=== PATIENT | female | born 1985 | race Caucasian/White ===

== ENCOUNTER → 2022-10-15 10:00 | Outpatient (BNVA) | payer SELFPAY | PROVIDERS: Family Provider Family Medicine; PCP Family Medicine; Visit Provider Nurse Practitioner Women's Health | DX: O09.529 Supervision of elderly multigravida, unspecified trimester (principal); O09.40 Supervision of pregnancy with grand multiparity, unspecified trimester; O12.00 Gestational edema, unspecified trimester; Z3A.00 Weeks of gestation of pregnancy not specified | CPT/HCPCS: 81000 ==

== ENCOUNTER 2022-10-21 16:48 | Outpatient (CLI) | payer MEDICAID, SELFPAY ==
[2022-10-21 16:50] VITALS: BMI 32.4
[2022-10-21 16:52] VITALS: BP 121/68; PULSE 84
[2022-10-21 17:07] VITALS: BP 118/62; PULSE 101
--- NOTE | 2022-10-21 17:09 | USR_ITS ---
PROCEDURE INFORMATION: Exam: US Duplex Left Lower Extremity Veins, Limited Exam date and time: 10/21/2022 5:22 PM Age: 37 years old Clinical indication: Pain; Leg, lower; Left; Additional info: Rule out dvt TECHNIQUE: Imaging protocol: Real-time duplex ultrasound of the left extremity with 2-D mendenhall scale, color Doppler flow and spectral waveform analysis including responses to compression and other maneuvers (when performed) with image documentation. Limited exam focused on the left lower extremity veins. COMPARISON: US OB follow up [facility] 10/15/2022 10:42 AM FINDINGS: Left deep veins: Unremarkable. The common femoral, femoral, proximal profunda femoral and popliteal veins are patent without thrombus. Normal Doppler waveforms. Normal compressibility and/or augmentation response. Left superficial veins: Unremarkable. Saphenofemoral junction is patent without thrombus. Soft tissues: Unremarkable. US/[place] [id number] IMPRESSION: No evidence of deep vein thrombosis.
[2022-10-21 17:22] VITALS: BP 113/65; PULSE 82
== END 2022-10-21 17:35 | disposition home or self-care (01) ==
LOC: OPOB 16:49 → OBGYN 16:50
PROVIDERS: Family Provider Family Medicine; PCP Family Medicine; Visit Provider Obstetrics & Gynecology
DX: O26.899 Other specified pregnancy related conditions, unspecified trimester (principal); Z3A.00 Weeks of gestation of pregnancy not specified
CPT/HCPCS: 84315; 93971; 99211

== ENCOUNTER → 2022-10-31 10:57 | Outpatient (BNVA) | payer MEDICAID, SELFPAY | PROVIDERS: Family Provider Family Medicine; PCP Family Medicine; Visit Provider Obstetrics & Gynecology | DX: O12.00 Gestational edema, unspecified trimester (principal); O09.40 Supervision of pregnancy with grand multiparity, unspecified trimester; Z3A.00 Weeks of gestation of pregnancy not specified | CPT/HCPCS: 80307; 81000; 82950; 85027; 86592; 86762; 86803; 86850; 86900; 87077; 87086; 87184; 87340; 87806 ==

== ENCOUNTER → 2022-11-13 12:16 | Outpatient (BNVA) | payer MEDICAID, SELFPAY | PROVIDERS: Family Provider Family Medicine; PCP Family Medicine; Visit Provider Obstetrics & Gynecology | DX: Z34.90 Encounter for supervision of normal pregnancy, unspecified, unspecified trimester (principal) | CPT/HCPCS: 76816 ==

== ENCOUNTER → 2022-11-14 08:22 | Outpatient (BNVA) | payer MEDICAID, SELFPAY | PROVIDERS: Family Provider Family Medicine; PCP Family Medicine; Visit Provider Obstetrics & Gynecology | DX: O09.40 Supervision of pregnancy with grand multiparity, unspecified trimester (principal); R82.90 Unspecified abnormal findings in urine; Z3A.28 28 weeks gestation of pregnancy | CPT/HCPCS: 80053; 81000; 85025; 87077; 87086; 87184 ==

== ENCOUNTER 2022-11-19 17:58 | Outpatient (CLI) | payer MEDICAID, SELFPAY ==
[2022-11-19 17:58] VITALS: BMI 35.2
[2022-11-19 18:10] VITALS: RESP 18
[2022-11-19 18:11] VITALS: BP 134/85; PULSE 99
[2022-11-19 18:28] VITALS: BP 119/71; PULSE 88
== END 2022-11-19 18:40 | disposition home or self-care (01) ==
LOC: OPOB 18:05 → OBGYN 18:09
PROVIDERS: Family Provider Family Medicine; PCP Family Medicine; Visit Provider Obstetrics & Gynecology
DX: O36.8190 Decreased fetal movements, unspecified trimester, not applicable or unspecified (principal); Z3A.00 Weeks of gestation of pregnancy not specified
CPT/HCPCS: 59025; 99211

== ENCOUNTER → 2022-11-24 11:40 | Outpatient (BNVA) | payer SELFPAY | PROVIDERS: Family Provider Family Medicine; PCP Family Medicine; Visit Provider Obstetrics & Gynecology | DX: O09.40 Supervision of pregnancy with grand multiparity, unspecified trimester (principal) | CPT/HCPCS: 81000 ==

== ENCOUNTER → 2022-11-25 09:00 | Outpatient (BNVA) | payer MEDICAID, SELFPAY | PROVIDERS: Family Provider Family Medicine; PCP Family Medicine; Visit Provider Obstetrics & Gynecology | DX: O09.40 Supervision of pregnancy with grand multiparity, unspecified trimester (principal) | CPT/HCPCS: 81000; 82951; 82952; 87491; 87591; 87624; 87661 ==

== ENCOUNTER → 2022-11-28 09:51 | Outpatient (BNVA) | payer SELFPAY | PROVIDERS: Family Provider Family Medicine; PCP Family Medicine; Visit Provider Obstetrics & Gynecology | DX: O09.40 Supervision of pregnancy with grand multiparity, unspecified trimester (principal) | CPT/HCPCS: 81000 ==

== ENCOUNTER → 2022-12-09 15:05 | Outpatient (BNVA) | payer MEDICAID, SELFPAY | PROVIDERS: Family Provider Family Medicine; PCP Family Medicine; Visit Provider Obstetrics & Gynecology | DX: Z34.93 Encounter for supervision of normal pregnancy, unspecified, third trimester (principal) | CPT/HCPCS: 76816; 81000 ==

== ENCOUNTER 2022-12-14 20:20 | Outpatient (CLI) | payer MEDICAID, SELFPAY ==
[2022-12-14] VITALS (29 sets, daily range): BP systolic 101–124; BP diastolic 55–62; PULSE 113–130; RESP 17; TEMP 37.1; O2SAT 94–98; BMI 35.2
[2022-12-14 21:02] LABS: Bacteria Urine TRACE /hpf; Bilirubin Urine Neg (Negative); Blood Urine Neg (Negative); Glucose Urine UA Norm (Normal); Ketones Urine Negative (Negative); Leukocyte Esterase Urine 1+ (Negative); Nitrate Urine Negative (Negative); Protein Urine Neg (Negative); Squamous Epithelial Cell Urine 15-25 /hpf (0-5); Urine Appearance Clear (CLEAR); Urine Color Yellow (Yellow); Urobilinogen Urine Norm (Negative); pH Urine 7 (5-7)
[2022-12-14 21:03] LABS: Add Urine Culture? No
[2022-12-14 21:27] LABS: Basophils % 0.2 %; Eosinophils % 0.2 %; Hematocrit 32.4 % (37.0-47.0); Hemoglobin 10.7 g/dL (11.5-15.3); Lymphocytes # 0.8 10^3/uL (0.8-4.8); Lymphocytes % 6.7 %; Mean Corpuscular Hemoglobin 29.6 pg (28.0-34.0); Mean Corpuscular Volume 89.8 fl (81-99); Mean Platelet Volume 10.2 fL (7.4-10.4); Monocytes # 0.7 10^3/uL (0.2-0.9); Monocytes % 5.6 %; Neutrophils # 10.58 10^3/uL (1.8-7.7); Neutrophils % 87.1 %; Nucleated Red Blood Cells % 0 %; Platelet Count 201 10^3/cmm (130-400); Red Blood Count 3.61 10^6/uL (4.1-5.3); Red Cell Distribution Width 13.2 % (12.1-15.1); White Blood Count 12.2 10^3/uL (4.0-10.0)
[2022-12-14 21:44] LABS: Alanine Aminotransferase 14 U/L (0-33); Albumin Level 3.1 g/dL (3.5-5.2); Alkaline Phosphatase 108 U/L (35-105); Anion Gap 15.4 (5-19); Aspartate Amino Transferase 20 U/L (0-32); Blood Urea Nitrogen 9 mg/dL (6-20); Calcium 8.7 mg/dL (8.5-10.5); Carbon Dioxide 18 mmol/L (22-29); Chloride 98 mmol/L (98-107); Globulin 3.1 g/dL (1.3-4.6); Glomerular Filtration Rate 178.6 mL/min (90-130); Glucose 106 mg/dL (65-115); Osmolality Calculated 265 mOsm/kg (285-295); Potassium 3.4 mmol/L (3.5-5.1); Sodium 128 mmol/L (136-145); Total Bilirubin 0.6 mg/dL (0.15-1.2); Total Protein 6.2 g/dL (6.6-8.7); Uric Acid 4.5 mg/dL (2.4-5.7)
[2022-12-14 21:48] LABS: Urine Creatinine 70 mg/dL (28-217); Urine Protein Random 8 mg/dL
[2022-12-14 21:49] LABS: UPRO/UCREAT Ratio 0.11 mg/mg CR
[2022-12-14] MEDS: acetaminophen 500 mg Tablet 1000 MG PO (21:50)
== END 2022-12-14 22:15 | disposition home or self-care (01) ==
LOC: OPOB 20:24 → OBGYN 22:04
PROVIDERS: Family Provider Family Medicine; PCP Family Medicine; Visit Provider Obstetrics & Gynecology
DX: O26.899 Other specified pregnancy related conditions, unspecified trimester (principal); R50.9 Fever, unspecified; R51.9 Headache, unspecified; Z3A.00 Weeks of gestation of pregnancy not specified; R00.0 Tachycardia, unspecified
CPT/HCPCS: 36415; 59025; 80053; 81001; 82570; 84156; 84550; 85025; 99211

== ENCOUNTER 2022-12-15 09:43 | Outpatient (CLI) | payer MEDICAID, SELFPAY ==
[2022-12-15] VITALS (18 sets, daily range): BP systolic 89–132; BP diastolic 46–69; PULSE 96–127; RESP 15; TEMP 36.7–37; O2SAT 96; BMI 35.6
[2022-12-15] MEDS: lactated ringers 1,000 ML 999 ML IV ×2 (10:35→12:27)
[2022-12-15] MEDS: NIFEdipine 10 mg Capsule 30 MG PO (11:49)
--- NOTE | 2022-12-15 12:20 | US_ITS ---
WS: [id number] BIOPHYSICAL PROFILE AMNIOTIC FLUID HISTORY: decels COMPARISON: 12/09/2022 position: Vertex. Cardiac activity: 157 bpm. Cervix: closed. Placenta: Fundal and anterior. Placenta grade: 2 Parameters are as follows: Breathin Movement: 2 Tone: 2 Fluid volume: 2 Normal amniotic fluid. IMPRESSION: 1. Biophysical profile score: 8/8. 2. Normal amniotic fluid.
[2022-12-15] MEDS: acetaminophen 500 mg Tablet 1000 MG PO (12:27)
== END 2022-12-15 15:04 | disposition home or self-care (01) ==
LOC: OPOB 09:51 → OBGYN 09:52
PROVIDERS: Family Provider Family Medicine; PCP Family Medicine; Visit Provider Obstetrics & Gynecology
DX: Z36.9 Encounter for antenatal screening, unspecified (principal); Z3A.00 Weeks of gestation of pregnancy not specified
CPT/HCPCS: 59025; 76819; 81000; 87077; 87086; 87184; 99211; J3105; J7120

== ENCOUNTER → 2022-12-19 13:15 | Outpatient (BNVA) | payer MEDICAID, SELFPAY | PROVIDERS: Family Provider Family Medicine; PCP Family Medicine; Visit Provider Obstetrics & Gynecology | DX: O09.40 Supervision of pregnancy with grand multiparity, unspecified trimester (principal); Z3A.00 Weeks of gestation of pregnancy not specified | CPT/HCPCS: 76819 ==

== ENCOUNTER 2022-12-19 15:08 | Outpatient (CLI) | payer MEDICAID, SELFPAY ==
[2022-12-15 09:57] VITALS: TEMP 37
[2022-12-15 12:12] VITALS: TEMP 36.7
[2022-12-19 15:20] VITALS: BMI 35.4
[2022-12-19 15:29] VITALS: BP 113/73; PULSE 88
[2022-12-19 15:44] VITALS: BP 108/61; PULSE 84
== END 2022-12-19 15:48 | disposition home or self-care (01) ==
LOC: OPOB 15:09 → OBGYN 15:10
PROVIDERS: Family Provider Family Medicine; PCP Family Medicine; Visit Provider Obstetrics & Gynecology
DX: O24.419 Gestational diabetes mellitus in pregnancy, unspecified control (principal); Z3A.00 Weeks of gestation of pregnancy not specified
CPT/HCPCS: 59025; 99211

== ENCOUNTER 2022-12-22 16:05 | Outpatient (CLI) | payer MEDICAID, SELFPAY ==
[2022-12-22 16:05] VITALS: BMI 35.6
[2022-12-22 16:17] VITALS: BP 108/65; PULSE 82
[2022-12-22 16:32] VITALS: BP 107/65; PULSE 81
== END 2022-12-22 16:47 | disposition home or self-care (01) ==
LOC: OPOB 16:08 → OBGYN 16:08
PROVIDERS: Family Provider Family Medicine; PCP Family Medicine; Visit Provider Obstetrics & Gynecology
DX: O24.419 Gestational diabetes mellitus in pregnancy, unspecified control (principal); Z3A.00 Weeks of gestation of pregnancy not specified
CPT/HCPCS: 59025; 81000; 99211

== ENCOUNTER → 2022-12-25 12:53 | Outpatient (BNVA) | payer MEDICAID, SELFPAY | PROVIDERS: Family Provider Family Medicine; PCP Family Medicine; Visit Provider Obstetrics & Gynecology | DX: Z34.90 Encounter for supervision of normal pregnancy, unspecified, unspecified trimester (principal) | CPT/HCPCS: 76819 ==

== ENCOUNTER 2022-12-25 16:17 | Outpatient (CLI) | payer MEDICAID, SELFPAY ==
[2022-12-25] VITALS (7 sets, daily range): BP systolic 113–120; BP diastolic 58–77; PULSE 73–96
== END 2022-12-25 17:06 | disposition home or self-care (01) ==
LOC: OPOB 16:18 → OBGYN 16:18
PROVIDERS: Family Provider Family Medicine; PCP Family Medicine; Visit Provider Obstetrics & Gynecology
DX: O24.419 Gestational diabetes mellitus in pregnancy, unspecified control (principal); Z3A.00 Weeks of gestation of pregnancy not specified
CPT/HCPCS: 59025; 99211

== ENCOUNTER 2022-12-29 10:52 | Outpatient (CLI) | payer MEDICAID, SELFPAY ==
[2022-12-29 11:00] VITALS: RESP 17; BMI 35.6
[2022-12-29 11:17] VITALS: BP 108/62; PULSE 80
[2022-12-29 11:32] VITALS: BP 107/56; PULSE 81
== END 2022-12-29 11:35 | disposition home or self-care (01) ==
LOC: OPOB 10:53 → OBGYN 11:06
PROVIDERS: Family Provider Family Medicine; PCP Family Medicine; Visit Provider Obstetrics & Gynecology
DX: O24.419 Gestational diabetes mellitus in pregnancy, unspecified control (principal); Z34.00 Encounter for supervision of normal first pregnancy, unspecified trimester
CPT/HCPCS: 59025; 81000

== ENCOUNTER → 2023-01-01 13:08 | Outpatient (BNVA) | payer MEDICAID, SELFPAY | PROVIDERS: Family Provider Family Medicine; PCP Family Medicine; Visit Provider Obstetrics & Gynecology | DX: O09.40 Supervision of pregnancy with grand multiparity, unspecified trimester (principal); Z3A.37 37 weeks gestation of pregnancy | CPT/HCPCS: 76815; 76819 ==

== ENCOUNTER 2023-01-01 15:24 | Outpatient (CLI) | payer MEDICAID, SELFPAY ==
[2023-01-01 15:25] VITALS: BMI 35.6
[2023-01-01 15:37] VITALS: BP 120/60; PULSE 80
[2023-01-01 15:52] VITALS: BP 109/60; PULSE 82
[2023-01-01 15:59] VITALS: RESP 17; TEMP 36.7
[2023-01-01 16:05] VITALS: RESP 17; TEMP 36.7
== END 2023-01-01 16:35 | disposition home or self-care (01) ==
LOC: OPOB 15:31 → OBGYN 15:33
PROVIDERS: Absent Provider Obstetrics & Gynecology; Family Provider Family Medicine; PCP Family Medicine; Visit Provider Obstetrics & Gynecology
DX: O24.419 Gestational diabetes mellitus in pregnancy, unspecified control (principal); Z3A.00 Weeks of gestation of pregnancy not specified
CPT/HCPCS: 59025; 99211

== ENCOUNTER 2023-01-03 20:17 | Outpatient (CLI) | payer MEDICAID, SELFPAY ==
[2023-01-03 20:17] VITALS: BMI 36.1
[2023-01-03 20:31] VITALS: BP 118/77; PULSE 89; TEMP 36.4
[2023-01-03 21:01] VITALS: BP 108/68; PULSE 81
[2023-01-03 21:10] VITALS: BP 108/68; PULSE 81; RESP 16; TEMP 36.4
== END 2023-01-03 21:10 | disposition home or self-care (01) ==
LOC: OPOB 20:18 → OBGYN 20:19
PROVIDERS: Family Provider Family Medicine; PCP Family Medicine; Visit Provider Obstetrics & Gynecology
DX: O47.9 False labor, unspecified (principal); R10.2 Pelvic and perineal pain; Z3A.00 Weeks of gestation of pregnancy not specified
CPT/HCPCS: 59025; 99211

== ENCOUNTER 2023-01-05 12:30 | Outpatient (CLI) | payer MEDICAID, SELFPAY ==
[2023-01-05 12:33] VITALS: BMI 35.9
[2023-01-05 12:37] VITALS: BP 121/72; PULSE 79
[2023-01-05 12:52] VITALS: BP 121/69; PULSE 80
[2023-01-05 13:07] VITALS: BP 116/68; PULSE 79
[2023-01-05 13:23] VITALS: BP 108/86; PULSE 92
== END 2023-01-05 13:30 | disposition home or self-care (01) ==
LOC: OPOB 12:31 → OBGYN 12:32
PROVIDERS: Family Provider Family Medicine; PCP Family Medicine; Visit Provider Obstetrics & Gynecology
DX: O24.419 Gestational diabetes mellitus in pregnancy, unspecified control (principal); Z3A.00 Weeks of gestation of pregnancy not specified
CPT/HCPCS: 59025; 81000; 99211

== ENCOUNTER 2023-01-06 10:36 | Outpatient (CLI) | payer MEDICAID, SELFPAY ==
[2023-01-06 10:46] VITALS: TEMP 35.9
[2023-01-06 10:48] VITALS: BP 123/74; PULSE 85
[2023-01-06 10:48] LABS: Glucose Point of Care 87 mg/dL (70-110)
[2023-01-06 11:09] VITALS: BP 115/60; PULSE 85
[2023-01-06 11:28] VITALS: BP 108/57; PULSE 88
== END 2023-01-06 11:42 | disposition home or self-care (01) ==
LOC: OPOB 10:37 → OBGYN 10:37
PROVIDERS: Family Provider Family Medicine; PCP Family Medicine; Visit Provider Obstetrics & Gynecology
DX: O26.899 Other specified pregnancy related conditions, unspecified trimester (principal); E16.2 Hypoglycemia, unspecified; Z3A.00 Weeks of gestation of pregnancy not specified
CPT/HCPCS: 36416; 59025; 82962; 99211

== ENCOUNTER 2023-01-08 07:38 | Outpatient (CLI) | payer MEDICAID, SELFPAY ==
[2023-01-08 07:48] VITALS: BP 124/71; PULSE 77
[2023-01-08 07:51] VITALS: BMI 36.1
[2023-01-08 08:02] VITALS: BP 122/68; PULSE 81
[2023-01-08 08:04] VITALS: RESP 16
[2023-01-08 08:16] VITALS: BP 110/64; PULSE 78
== END 2023-01-08 08:25 | disposition home or self-care (01) ==
LOC: OPOB 07:39 → OBGYN 07:39
PROVIDERS: Family Provider Family Medicine; PCP Family Medicine; Visit Provider Obstetrics & Gynecology
DX: O24.419 Gestational diabetes mellitus in pregnancy, unspecified control (principal); Z3A.00 Weeks of gestation of pregnancy not specified
CPT/HCPCS: 59025; 76819; 99211

== ENCOUNTER 2023-01-12 10:15 | Outpatient (CLI) | payer MEDICAID, SELFPAY ==
[2023-01-12 10:24] VITALS: TEMP 36.6
[2023-01-12 10:26] VITALS: BP 125/74; PULSE 80; BMI 36.1
[2023-01-12 10:52] VITALS: BP 111/69; PULSE 74
== END 2023-01-12 13:12 | disposition home or self-care (01) ==
LOC: OPOB 10:15 → OBGYN 10:16
PROVIDERS: Family Provider Family Medicine; PCP Family Medicine; Visit Provider Obstetrics & Gynecology
DX: O24.419 Gestational diabetes mellitus in pregnancy, unspecified control (principal); Z3A.00 Weeks of gestation of pregnancy not specified
CPT/HCPCS: 59025; 99211

== ENCOUNTER → 2023-01-13 13:09 | Outpatient (BNVA) | payer MEDICAID, SELFPAY | PROVIDERS: Family Provider Family Medicine; PCP Family Medicine; Visit Provider Obstetrics & Gynecology | DX: O09.40 Supervision of pregnancy with grand multiparity, unspecified trimester (principal); Z3A.37 37 weeks gestation of pregnancy | CPT/HCPCS: 81000; 87081 ==

== ENCOUNTER 2023-01-15 08:17 | Outpatient (CLI) | payer MEDICAID, SELFPAY ==
[2023-01-15 08:17] VITALS: BMI 36.8
[2023-01-15 08:30] VITALS: BP 122/78; PULSE 71
[2023-01-15 08:52] VITALS: BP 127/78; PULSE 72
== END 2023-01-15 09:00 | disposition home or self-care (01) ==
LOC: OPOB 08:22 → OBGYN 08:23
PROVIDERS: Family Provider Family Medicine; PCP Family Medicine; Visit Provider Obstetrics & Gynecology
DX: Z36.89 Encounter for other specified antenatal screening (principal)
CPT/HCPCS: 76819

== ENCOUNTER 2023-01-15 16:20 | Outpatient (CLI) | payer MEDICAID, SELFPAY ==
[2023-01-15 16:20] VITALS: BMI 36.6
[2023-01-15 16:32] VITALS: BP 135/64; PULSE 75
[2023-01-15 16:52] VITALS: BP 121/66; PULSE 77
[2023-01-15 17:10] VITALS: BP 121/66; PULSE 77; RESP 18
== END 2023-01-15 17:10 | disposition home or self-care (01) ==
LOC: OPOB 16:23 → OBGYN 16:24
PROVIDERS: Family Provider Family Medicine; PCP Family Medicine; Visit Provider Obstetrics & Gynecology
DX: O47.9 False labor, unspecified (principal); Z3A.00 Weeks of gestation of pregnancy not specified
CPT/HCPCS: 59025; 84315; 87077; 87086; 87184; 99211

== ENCOUNTER 2023-01-19 12:01 | Inpatient (IN) | payer MEDICAID, SELFPAY ==
[2023-01-19] VITALS (78 sets, daily range): BP systolic 95–153; BP diastolic 45–87; PULSE 60–110; RESP 14–16; TEMP 35.9–36.3; O2SAT 87–100; BMI 36.5
--- NOTE | 2023-01-19 12:20 | PM.OPHPUD ---
Labor & Delivery H&P Update Date of Procedure: January 19, 2023 Date H&P Performed: 01/13/23 H&P update information: I have reviewed H&P completed within last 30 days, I have examined patient prior to procedure and No changes to prior documentation Admission Diagnosis: Preop diagnosis: labor pain Planned procedure: Operation Date: 01/19/23 21:25 Proposed Procedures p Section Repeat With Tubal(Bilateral) - Oleg Awad MD
[2023-01-19 12:45] LABS: Basophils % 0.2 %; Eosinophils # 0.1 10^3/uL (0.0-0.8); Eosinophils % 1.3 %; Hematocrit 36.2 % (37.0-47.0); Hemoglobin 11.8 g/dL (11.5-15.3); Lymphocytes # 1.9 10^3/uL (0.8-4.8); Mean Corpuscular HGB Conc 32.6 g/dL (30.0-36.0); Mean Corpuscular Hemoglobin 29.1 pg (28.0-34.0); Mean Corpuscular Volume 89.2 fl (81-99); Mean Platelet Volume 11.8 fL (7.4-10.4); Monocytes # 0.4 10^3/uL (0.2-0.9); Monocytes % 4.9 %; Neutrophils # 5.85 10^3/uL (1.8-7.7); Neutrophils % 70.4 %; Nucleated Red Blood Cells % 0 %; Platelet Count 231 10^3/cmm (130-400); Red Blood Count 4.06 10^6/uL (4.1-5.3); Red Cell Distribution Width 14.8 % (12.1-15.1); White Blood Count 8.3 10^3/uL (4.0-10.0)
[2023-01-19] MEDS: miSOPROStol 100 mcg tablet 25 MCG VAGINAL (12:49)
[2023-01-19 13:00] LABS: Glucose Point of Care 121 mg/dL (70-110)
[2023-01-19 17:25] LABS: Glucose Point of Care 80 mg/dL (70-110)
[2023-01-19] MEDS: fentaNYL 50 mcg/mL INJ 2mL IVP (17:45)
[2023-01-19] MEDS: lactated ringers 1,000 ML 999 ML IV ×2 (18:00→21:20)
--- NOTE | 2023-01-19 18:31 | ANES.PREANE2 ---
Pre-Anesthetic Assessment Height/Weight: Height 1.6 m Weight 93.582 kg Temp Pulse Resp BP O2 Del Method 96.6 F L 93 16 134/65 Room Air 01/19/23 14:31 01/19/23 18:06 01/19/23 17:45 01/19/23 18:06 01/19/23 14:24 Preop Diagnosis: labor pain epidural Familial anesthetic complications: none Was Beta Abel taken within 24 hours: N/A Was Clonidine taken within 24 hours: N/A Airway Submandibular: within normal limits Cervical ROM: within normal limits Mallampati: Class II Dentition: full History/ROS Other Pulmonary None reported CV/HEM Anemia Hepatic None reported GI None reported Metabolic Diabetes Mellitus (gestational) Musc/skel Scoliosis Neuropsych None reported Anesthetic Plan ASA status: 2 Anesthesia: Regional (specify below) Risk of > 500 ml blood loss (7ml/kg in children): No Medications/Allergies Home Medications Medication Instructions Recorded Confirmed Last Taken Type PNV 158-iron 13.5 mg-folic 0.5 1 cap PO 1XD 10/21/22 01/19/23 01/19/23 08:30 History mg-omega 3-dha 150 mg-epa-fish 1 capsule (Natavi PNV) ferrous sulfate 325 mg (65 mg 325 mg PO DAILY anemia #90 tabs 11/17/22 01/19/23 01/19/23 08:30 Rx iron) tablet 1 blood-glucose meter (Blood Glucose #1 ea 11/21/22 01/19/23 Unknown Rx Monitoring kit) blood sugar diagnostic #100 ea 12/11/22 01/19/23 Unknown Rx metformin 500 mg tablet,extended 500 mg PO BID Gestational diabetes 01/01/23 01/19/23 01/19/23 08:30 Rx release 24 hr #30 tabs 1 cephalexin 500 mg capsule 500 mg PO BID bladder infection 01/19/23 01/19/23 Unknown History Allergies Allergy/AdvReac Type Severity Reaction Status Date / Time No Known Allergies Allergy Verified 01/15/23 13:12 Current Medications Generic Name Dose Route Start Last Admin Trade Name Freq PRN Reason Stop Dose Admin Fentanyl 25 - 100 mcg 01/19/23 12:08 01/19/23 17:45 Fentanyl 50 Mcg/Ml Inj 2ml IVP 25 mcg Q1H PRN Administration SEVERE PAIN Lactated Ringer's 1,000 mls @ 999 mls/hr 01/19/23 17:40 01/19/23 18:00 Lactated Ringers IV 999 mls/hr .Q1H1M PRN Administration See label comments Misoprostol 25 mcg 01/19/23 12:15 01/19/23 12:49 Misoprostol 100 Mcg Tablet VAGINAL 01/19/23 20:16 25 mcg Q4H CATE Administration PFSH Anesthesia Family History Denies family history of Cervical cancer Colon cancer Diabetes Breast cancer Hypertension Uterine cancer Stroke Female Reproductive History : 7 Data Anesthesia 01/19/23 12:30 Short CBC 01/19/23 Range/Units 12:30 WBC 8.3 (4.0-10.0) 10^3/uL Hgb 11.8 (11.5-15.3) g/dL Hct 36.2 L (37.0-47.0) % MCV 89.2 (81-99) fl Plt Count 231 (130-400) 10^3/cmm Neut % (Auto) 70.4 % Neut # (Auto) 5.85 (1.8-7.7) 10^3/uL Cardiac Studies: No Data to Display
--- NOTE | 2023-01-19 19:11 | ANES.PROC ---
Anesthesia Procedures Procedure/Date: 01/19/23 epidural Procedure Narrative: epidural complete, on first attempt patient jumped in bed while needle was placed clear fluid noted in syringe. patient denies head or neck pain. patient was educated on wet tap, second attempt was done and completed in L3-4 space. RN notified of finding. bolus given, epidural pump initiated with LEAD OPERATOR education given, vitals taken during procedure and satisfactory throughout, patient admits to decrease pain, report of procedure to OB RN Epidural: Time Out Performed: Yes Consents Signed: Procedure Consent Consent: requested by attending/covering physician, from patient, risks and benefits reviewed and patient agrees to proceed Lumbar Level: L3-L4 Epidural position: sitting Epidural procedure: sterile prep of area, 1% lidocaine to numb the area (3 mL), 18 g needle, negative for paresthesia passed, neg for paresthesia, test dose given, 1.5% xylocaine 1:200k epi (5 mL), 0.2% Ropivacaine bolus ml (5 mL), placed PCEA, no systemic response, sterile dressing applied, L.U.D. no apparent complications and 0.2% Ropiavacaine @ mls/hr (12 mL/hr)
[2023-01-19 20:47] LABS: Glucose Point of Care 67 mg/dL (70-110)
[2023-01-19] MEDS: ceFAZolin 2,000 MG in sodium chloride 0.9% (plus) 50 ML 100 MG IV (21:25)
--- NOTE | 2023-01-19 23:10 | PM.OP ---
Operative Report Date of procedure: January 19, 2023 Pre-op diagnosis: Preop Diagnosis term Gestational diabetes, Polyhydramnios Macrosomia Nonreassuring status Desire permanent sterilization Post-op diagnosis: Same as above Procedure done: Primary low transverse delivery. Bilateral partial salpingectomy. Specimens removed/disposition: Left and right fallopian tube segments Surgeon: Oleg Awad MD Estimated blood loss (mL): 1,200 IV fluids (mL): 1,800 Procedure: The patient has been showing category tracing 2. It was decided to place scalp electrode and intrauterine pressure transducer to better monitor the heart rate. But after AROM with clear fluids heart tracing decreased to 60s bpm for an extended period of time without adequate recovery and an emergent delivery was recommended. The patient was counseled regarding concerning heart rate and she agreed to proceed with a delivery. After assuring informed consent, the patient was taken to the operating room and epidural anesthesia was already in place. She was placed in the dorsal supine position with a left lateral tilt. The abdomen was prepped and draped in the usual sterile manner. A time-out procedure was performed. Preop antibiotics was administered. Allis clamps were used on the skin to determine if epidural was working. After assuring adequate anesthesia the delivery was started. A Pfannenstiel skin incision was made with the scalpel and carried through to the underlying layer of fascia with the Bovie. The fascia was nicked in the midline and the incision extended laterally with the Crisostomo scissors. The superior aspect of the fascial incision was then grasped with Levi clamps and elevated and the underlying rectus muscle dissected off bluntly and sharp with crisostomo scissors. Attention was then turned to the inferior aspect of the incision which, in similar fashion, was grasped and tented up with Levi clamps and the rectus muscle dissected bluntly. The rectus muscles were then in the midline and the peritoneum identified, tented up and entered sharply with Metzenbaum scissors. The peritoneal incision was then extended superiorly and inferiorly with good visualization of the bladder. The Sonido O retractor was then inserted and the vesicouterine peritoneum identified, grasped with pickups and entered sharply with Metzenbaum scissors. This incision was then extended laterally and the bladder flap created digitally. The uterus incised in a low transverse fashion with the scalpel. The uterine incision was then extended with the bandage scissors. The was then delivered in the cephalic presentation atraumatically. The nose and the mouth were suctioned with bulb and the cord clamped and cut. Showing nuchal cord x1. The infant was immediately handed over to the awaiting claim agent and nursing personnel. The cord was normal and had three vessels. Amniotic fluid was clear. The placenta was then removed manually and the uterus exteriorized and cleared of all clots and debris. The uterine incision was repaired with 0 Vicryl in a running-locked fashion. A second layer of the same suture was used to obtain excellent hemostasis. The gutters were cleared of all clots. The left fallopian tube was identified and grasped with a Buffalo clamp. The tube was then followed out to the fimbria. An avascular midsection of the fallopian tube was grasped with a Buffalo clamp and and using the PaperGt 5 fusion device the mid section of the fallopian tube was clamped, cauterized/cystocele and transected. The specimen was sent to pathology. Excellent hemostasis was noted. The same procedure was performed on the opposite fallopian tube. The uterus was then returned to the abdomen. The rectus muscles were approximated with 3-0 chromic gut. The Exparel preparation was infiltrated at the incision site. The fascia was reapproximated with 0 Vicryl in an interrupted running fashion. Exparel was infiltrated into adipose tissue parallel to the skin. The skin was closed with Insorb?s subcuticular absorbable ilana. The patient tolerated the procedure well. The sponge, lap and needle counts were correct times three. This documentation was created by [employer] wood model builder software (known for inherent wood model builder error). Every effort was made to assure accuracy of wood model builder. However this EMR system does not have any medical dictionary.
[2023-01-20] VITALS (110 sets, daily range): BP systolic 95–116; BP diastolic 50–68; PULSE 62–107; RESP 18; TEMP 35.7–36.7; O2SAT 86–99
[2023-01-20] MEDS: HYDROcodone-acetaminophen 5-325 mg Tablet PO ×2 (00:25→20:49)
[2023-01-20] MEDS: diphenhydrAMINE 50 mg/mL SDV 1mL 25 MG IVP ×2 (01:19→16:47)
[2023-01-20] MEDS: ketorolac 30 mg/mL INJ IVP ×3 (05:07→16:47)
[2023-01-20] MEDS: hyDROXYzine 25 mg Capsule 50 MG PO (05:10)
[2023-01-20] MEDS: simethicone 80 mg Chew PO (05:10)
[2023-01-20] MEDS: dextrose 5%-lactated ringers 1,000 ML 125 ML IV ×2 (05:27→17:32)
[2023-01-20] MEDS: sodium chloride 0.9% 500 ML 999 ML IV ×2 (05:35→16:47)
[2023-01-20] MEDS: prenatal vitamin Capsule 1 CAP PO (08:53)
[2023-01-20] MEDS: docusate sodium 100 mg Capsule PO ×2 (08:53→16:48)
[2023-01-20] MEDS: ferrous sulfate EC 325 mg Tablet PO ×2 (08:53→17:29)
[2023-01-20 11:42] LABS: Hematocrit 27.7 % (37.0-47.0); Hemoglobin 8.9 g/dL (11.5-15.3); Mean Corpuscular HGB Conc 32.1 g/dL (30.0-36.0); Mean Corpuscular Hemoglobin 29.6 pg (28.0-34.0); Mean Platelet Volume 11.7 fL (7.4-10.4); Platelet Count 167 10^3/cmm (130-400); Red Blood Count 3.01 10^6/uL (4.1-5.3); Red Cell Distribution Width 15.3 % (12.1-15.1)
--- NOTE | 2023-01-20 12:20 | P.PN_ITS ---
Subjective Subjective: Mrs. Rasheed 37-year-old female is status post primary low transverse delivery refers feeling comfortable Vitals/I&O/Wt Last Vital Signs Temp 97.0 F L 01/21/23 09:27 Pulse 93 01/21/23 09:25 Resp 18 01/20/23 22:10 BP 112/54 01/21/23 09:25 Pulse Ox 97 01/20/23 22:09 O2 Del Method Room Air 01/20/23 22:10 01/21/23 01/21/23 01/21/23 06:59 14:59 22:59 Intake Total 1300 / 2800 Balance 1300 / 2175 Physical Exam Narrative: GA; alert and oriented x 3 HEENT: normal Breasts: engorged Nipples - skin intact Lungs; clear to auscultation Heart: regular rhythm, no murmurs. Abd: Appropriately tender. BS+. Uterine fundus below umbilicus. No Fundal Tend erness. Minimal tenderness, incision clean and dry, no redness, pain or edema. Perineum: normal lochia. Extremities: no edema, no cyanosis, no tenderness. Urinary Catheter Management: Valdovinos: Cath Placed During This Visit: yes, but has since been removed by the nurse Reason for Continuing Indwelling Catheter: Decision to DC Catheter Urinary Catheter Date of Insertion: 01/19/23 Urinary Catheter Time of Insertion: 20:45 Date Urinary Catheter Removed: 01/20/23 Time Urinary Catheter Discontinued: 18:25 Data 01/20/23 11:25 A&P Assessment and plan (1) Status post primary low transverse section: Mrs. Rasheed 37-year-old female is status post primary low transverse delivery. Refers feeling comfortable with the Exparel. Incision clean and dry. Ambulating without difficulty, tolerating diet well. She is afebrile hemodynamically stable. Plan Postop observation. Attestations Medical Necessity Statement*: In my professional opinion per admitting diagnosis Coding Level of Care Code Acute Code for Chg Fwd Diagnoses Status post primary low transverse section Z98.891
[2023-01-21] MEDS: dextrose 5%-lactated ringers 1,000 ML 125 ML IV (01:39)
[2023-01-21] MEDS: ibuprofen 800 mg tablet PO ×4 (02:18→20:37)
[2023-01-21] MEDS: HYDROcodone-acetaminophen 5-325 mg Tablet PO ×5 (03:14→21:55)
[2023-01-21 06:03] VITALS: BP 94/55; PULSE 77; TEMP 36.4
[2023-01-21] MEDS: prenatal vitamin Capsule 1 CAP PO (07:05)
[2023-01-21] MEDS: ferrous sulfate EC 325 mg Tablet PO ×2 (07:05→17:42)
[2023-01-21] MEDS: docusate sodium 100 mg Capsule PO ×2 (08:40→17:42)
[2023-01-21 09:25] VITALS: BP 112/54; PULSE 93
[2023-01-21 09:27] VITALS: TEMP 36.1
--- NOTE | 2023-01-21 16:24 | PM.PN ---
Subjective Subjective: Mrs. Weller 37-year-old female status post primary low termor delivery postoperative day 1. Refers Exparel is wearing off and she is needing pain medication. Vitals/I&O/Wt Last Vital Signs Temp 97.0 F L 01/21/23 09:27 Pulse 93 01/21/23 09:25 Resp 18 01/20/23 22:10 BP 112/54 01/21/23 09:25 Pulse Ox 97 01/20/23 22:09 O2 Del Method Room Air 01/20/23 22:10 01/21/23 01/21/23 01/21/23 06:59 14:59 22:59 Intake Total 1300 / 2800 Balance 1300 / 2175 Physical Exam Narrative: GA; alert and oriented x 3 HEENT: normal Breasts: engorged Nipples - skin intact Lungs; clear to auscultation Heart: regular rhythm, no murmurs. Abd: Appropriately tender. BS+. Uterine fundus below umbilicus. No Fundal Tenderness. Moderate tenderness, incision clean and dry, no redness, pain or edema. Perineum: normal lochia. Extremities: no edema, no cyanosis, no tenderness. Urinary Catheter Management: Valdovinos: Cath Placed During This Visit: yes, but has since been removed by the nurse Reason for Continuing Indwelling Catheter: Decision to DC Catheter Urinary Catheter Date of Insertion: 01/19/23 Urinary Catheter Time of Insertion: 20:45 Date Urinary Catheter Removed: 01/20/23 Time Urinary Catheter Discontinued: 18:25 Data 01/20/23 11:25 A&P Assessment and plan (1) Status post primary low transverse section: Mrs. Rasheed 37-year-old female is status post primary low transverse delivery postoperative day 1. She is afebrile hemodynamically stable. Incision clean and dry. Ambulating without difficulty, tolerating diet well. Patient referring moderate pain requesting p.o. medication. Plan Continue postop observation. Pain management. Plan discharge tomorrow morning Attestations Medical Necessity Statement*: In my professional opinion per admitting diagnosis. Coding Level of Care Code Acute Code for Chg Fwd Diagnoses Status post primary low transverse section Z98.891
[2023-01-21 16:50] VITALS: TEMP 36
[2023-01-21 16:51] VITALS: BP 110/55; PULSE 87
[2023-01-21] MEDS: simethicone 80 mg Chew PO (18:33)
[2023-01-21 22:00] VITALS: BP 128/82; PULSE 102; RESP 16; TEMP 36.5; O2SAT 99
[2023-01-22] MEDS: HYDROcodone-acetaminophen 5-325 mg Tablet PO ×2 (03:42→07:43)
[2023-01-22] MEDS: acetaminophen 325 mg Tablet 650 MG PO (05:01)
[2023-01-22 06:13] VITALS: BP 122/78; PULSE 83; RESP 15; TEMP 37.1; O2SAT 100
[2023-01-22] MEDS: ferrous sulfate EC 325 mg Tablet PO (07:43)
[2023-01-22] MEDS: prenatal vitamin Capsule 1 CAP PO (07:43)
--- NOTE | 2023-01-22 08:00 | ANE.PACU2 ---
Inpatient post-anesthesia follow up: Airway intact: Yes Vital signs: Temperature 96.9 F Pulse Rate 89 Respiratory Rate 15 Blood Pressure 120/62 Pulse Oximetry 100 Oxygen Delivery Me thod Room Air Oxygen Flow Rate Fraction of Inspir ed Oxygen Hydration adequate: Yes Nausea and vomiting: Yes Pain level: 2 Mental status: Baseline
--- NOTE | 2023-01-22 09:32 | P.DS_ITS ---
Discharge Providers HANDBAG OPERATOR Date of Admission: 01/19/23 12:01 Date of Discharge: 01/22/23 Attending Provider at Admission: Oleg Awad MD Attending Provider at Discharge: Oleg Awad MD Primary HANDBAG OPERATOR: Oleg Awad MD Primary Care Provider: Ezequiel Marrero DO Diagnoses at Discharge Discharge Diagnosis (1) Status post primary low transverse section: Status: Acute Reason for Visit Reason for Visit: IOL Brief History: Mrs. Rivera is a 37 year old established patient with who has been receiving care from [facility] [place]. complicated with gestational diabetes and macrosomia. Admitted for induction LMP of unknown, TOPHER 01/31/23 CC: Induction of labor HPI: Received appropriate care. Daily vitamins since the start of late late care. Labs have all been normal, including negative for HIV. She was found to negative for Group B Strep from screening at 36 weeks. She has gained approximately 19.8 lbs throughout the . She denies a history of HTN during . Hospital Course Hospital Course Mrs. Rivera is a 37 year old with a LMP unknown, and TOPHER 01/31/23 by late ultrasound admitted induction with an EGA of 38+2 weeks due gestational diabetes and macrosomia. The Patient received Cytotec x1 for cervical ripening, started to progress labor and epidural was placed the patient then started showing a heart tracing category 2. After AROM with clear fluids heart tracing changed to category 3 with sustained bradycardia and an emergency delivery was performed without complications. She is afebrile hemodynamically stable postoperative day 2. Tolerating diet well. Ambulating without difficulty. Incisional tenderness worse when attempting to sit up. Patient was counseled regarding pelvic rest for 6 weeks (no sex, no tampons, no vaginal douches). Return to the emergency room if any fever, increased bleeding or pain. Information Peripartum Data: Infant Delivery Method: Physical Exam Narrative: GA; alert and oriented x 3 HEENT: normal Breasts: engorged Nipples - skin intact Lungs; clear to auscultation Heart: regular rhythm, no murmurs. Abd: Appropriately tender. BS+. Uterine fundus below umbilicus. No Fundal Tenderness. Moderate tenderness, incision clean and dry, no redness, pain or edema. Perineum: normal lochia. Extremities: no edema, no cyanosis, no tenderness. Urinary Catheter Management: Valdovinos: Cath Placed During This Visit: yes, but has since been removed by the nurse Reason for Continuing Indwelling Catheter: Decision to DC Catheter Urinary Catheter Date of Insertion: 01/19/23 Urinary Catheter Time of Insertion: 20:45 Date Urinary Catheter Removed: 01/20/23 Time Urinary Catheter Discontinued: 18:25 History History History 7 Term 6 0 Miscarriages/Ectopic 0 Living Children 6 Discharge Data Studies Completed and Pending Completed Studies During Hospitalization Category Date Time Status Pathology: Surgical [PTH] Routine Pth 01/19/23 22:43 Completed Laboratory Results WBC 9.0 10^3/uL (4.0-10.0) 01/20/23 11:25 RBC 3.01 10^6/uL (4.1-5.3) L 01/20/23 11:25 Hgb 8.9 g/dL (11.5-15.3) L 01/20/23 11:25 Hct 27.7 % (37.0-47.0) L 01/20/23 11:25 MCV 92.0 fl (81-99) 01/20/23 11:25 MCH 29.6 pg (28.0-34.0) 01/20/23 11:25 MCHC 32.1 g/dL (30.0-36.0) 01/20/23 11:25 RDW 15.3 % (12.1-15.1) H 01/20/23 11:25 Plt Count 167 10^3/cmm (130-400) 01/20/23 11:25 MPV 11.7 fL (7.4-10.4) H 01/20/23 11:25 Neut % (Auto) 70.4 % 01/19/23 12:30 Lymph % (Auto) 23.0 % 01/19/23 12:30 [place] % (Auto) 4.9 % 01/19/23 12:30 Eos % (Auto) 1.3 % 01/19/23 12:30 Baso % (Auto) 0.2 % 01/19/23 12:30 Neut # (Auto) 5.85 10^3/uL (1.8-7.7) 01/19/23 12:30 Lymph # (Auto) 1.9 10^3/uL (0.8-4.8) 01/19/23 12:30 [place] # (Auto) 0.4 10^3/uL (0.2-0.9) 01/19/23 12:30 Eos # (Auto) 0.1 10^3/uL (0.0-0.8) 01/19/23 12:30 Baso # (Auto) 0.0 10^3/uL (0.0-0.1) 01/19/23 12:30 Nucleated RBC % (auto) 0 % 01/19/23 12:30 Nucleated RBCs # 0.0 /100WBC 01/19/23 12:30 POC Glucose 67 mg/dL (70-110) L 01/19/23 20:43 Vitals Last Vital Signs Temp 98.8 F 01/22/23 06:13 Pulse 83 01/22/23 06:13 Resp 15 01/22/23 06:13 BP 122/78 01/22/23 06:13 Pulse Ox 100 01/22/23 06:13 O2 Del Method Room Air 01/22/23 06:13 Discharge Plan Discharge Patient Disposition: Home Condition: Stable Prescriptions: New hydrocodone-acetaminophen 5-325 mg tablet 1 tab PO Q4H PRN (Reason: pain) Qty: 20 0RF acetaminophen 325 mg capsule 325 mg PO Q6H Qty: 60 0RF ferrous sulfate [Iron (ferrous sulfate)] 325 mg (65 mg iron) tablet 325 mg PO BID Qty: 60 0RF ibuprofen 800 mg tablet 800 mg PO TID PRN (Reason: pain) Qty: 60 0RF docusate sodium [Colace] 100 mg capsule 100 mg PO BID Qty: 60 0RF Continued Natavi PNV 13.5 mg iron- 0.5 mg-150 mg capsule 1 cap PO 1XD (DME) blood-glucose meter [Blood Glucose Monitoring] Kit See Rx Instructions .Route Qty: 1 0RF Rx Instructions: check blood glucose fasting, 1 hour post breakfast, 1 hour post lunch and 1 hour post dinner. ferrous sulfate 325 mg (65 mg iron) tablet 325 mg PO DAILY Qty: 90 3RF Rx Instructions: take 1 tab daily by mouth. (DME) blood sugar diagnostic Strip See Rx Instructions .Route Qty: 100 3RF Rx Instructions: As directed metformin 500 mg tablet extended release 24 hr 500 mg PO BID Qty: 30 3RF cephalexin 500 mg capsule 500 mg PO BID Discharge Orders: Discharge Order (Routine); Ordered 01/22/23 Ordered By: Oleg Awad Referrals: Oleg Awad MD [Physician] - 2 weeks Discharge Diet: Usual diet Discharge Activity: Limit activity as instructed Patient Instructions: Opioid Safety, (GEN), Caring for Your Baby (GEN), Your 's Appearance (GEN), TTN (Transient Tachypnea of ) (GEN) Activity Restrictions/Additional Instructions: 1. Please call [facility] on next working day to make your post-operative appointment in 2 weeks. 2. Please stay home until you come back to the clinic on first post- hospatilization check up. 3. Please follow instructions on your medications CAREFULLY. 4. If you have abdominal incision, do not cover it unless dressing is necessary because of drainage. OK to shower, but avoid bath. Leave steri-strips until they fall off. If they are still on one week after surgery, you may remove them. 5. If you had vaginal surgery or vaginal repair, Dr. Awad may instruct you to take SITZ bath. 6. Yellow, blood tinged odorous vaginal discharge is usually normal after hysterectomy or vaginal surgeries. 7. No SEXUAL INTERCOURSE, tampons, or douches until you are completely released from the post-operative care. 8. Avoid constipation by eating right and maybe using some Metamucil or Milk of Magnesia. 9. All prescription refills are given during the working hours. Please do no wait till it runs out. Call the clinic at [phone] before your medication runs out. The clinic will get in touch with your doctor to prescribe medications if necessary. 10. Please remain within 40 mile radius from our hospital because emergencies do happen now and then during the post-operative period. 11. If you have stairs at home, take one step at a time slowly and minimize the number of trips. It helps to stay in one floor for the next few days. No lifting except what you can lift by one hand until you are released from the post-operative care. 12. Driving is discouraged until you are well healed. It may be 3-4 weeks before you feel strong enough to drive. You should be able to turn and look through the rear window without pain and you should be able to push the brake pedal very hard without pain before you drive. No fast rules, but SAFETY should be your primary concern. DO NOT drive if you are on sedating medications such as narcotics. 13. Call the clinic (during working hours) to make urgent appointment or go to the Emergency room, if any of the following occurs: i. Vaginal bleeding becomes heavy, more than a period. ii. Incision becomes red and sore, or drains pus. iii. Your TEMPERATURE is over 100.4F or you have chill. iv. IV site becomes red and swollen (a little ``knot?? is usually OK) v. Persistent nausea and vomiting vi. Persistent constipation or diarrhea vii. Rash or allergic reaction to medications. Discharge Attestations HANDBAG OPERATOR Time Spent in Discharge Care*: greater than 30 min Coding Level of Care Code Acute Code for Chg Fwd Diagnoses Status post primary low transverse section Z98.891
[2023-01-22] MEDS: docusate sodium 100 mg Capsule PO (09:52)
[2023-01-22] MEDS: ibuprofen 800 mg tablet PO (09:52)
[2023-01-22 10:35] VITALS: TEMP 35.9
[2023-01-22 10:36] VITALS: BP 120/62; PULSE 89
[2023-01-22 10:45] VITALS: BP 120/62; PULSE 89; RESP 15; TEMP 36.1
== END 2023-01-22 10:40 | disposition home or self-care (01) | DRG 785 ==
LOC: OPOB 12:09 → OBGYN 12:09
PROVIDERS: Admitting Provider Obstetrics & Gynecology; Family Provider Family Medicine; PCP Family Medicine; Visit Provider Obstetrics & Gynecology
PROC: 10D00Z1 Extraction of Products of Conception, Low, Open Approach (ICD-10-PCS; CPT 59514; principal; 2023-01-19 21:25)
DX: O24.425 Gestational diabetes mellitus in childbirth, controlled by oral hypoglycemic drugs (principal); Z3A.38 38 weeks gestation of pregnancy; Z37.0 Single live birth; O36.63X0 Maternal care for excessive fetal growth, third trimester, not applicable or unspecified; O76 Abnormality in fetal heart rate and rhythm complicating labor and delivery; O40.3XX0 Polyhydramnios, third trimester, not applicable or unspecified; O99.02 Anemia complicating childbirth; D64.9 Anemia, unspecified; O99.892 Other specified diseases and conditions complicating childbirth; M41.9 Scoliosis, unspecified; Z30.2 Encounter for sterilization
CPT/HCPCS: 36415; 36416; 51702; 59025; 59409; 82962; 85025; 85027; 88302; 96374; 96376; C9290; J0690; J1200; J1885; J2274; J2400; J2405; J2590; J2795; J3010; J3490; J7030; J7040; J7120; J7121

== ENCOUNTER 2023-01-24 05:48 | Emergency (ER) | payer MEDICAID, SELFPAY ==
--- NOTE | 2023-01-24 05:51 | W.ED.GENADLT ---
HPI - General Adult General: Chief complaint: Headache Stated complaint: Back of Neck and Head Time Seen by Provider: 01/24/23 05:51 Source: patient Mode of arrival: ambulatory History of Present Illness: 37-year-old female day 4 presents emergency room with complaints of severe headache. At the time of her delivery she had an epidural x2 the first attempt failed she is having a 10 of 10 headache when upright when she lays down the headache instantly resolves she reports it goes down to a 0-1 out of 10. She not had any fever sweats chills dysuria urgency or frequency. Mild pelvic cramping with lochia appropriate for state. Onset (ago): day(s) Location: head Quality: sharp Pain Consistency: intermittent Relieving factors: other (Supine) Exacerbating factors: other Associated symptoms: Reports headache(s); Deny chest pain, confusion, cough, diaphoresis, decreased appetite, dyspnea, fevers/chills, malaise, nausea, rash, palpitations, seizures, short of breath, syncope, vomiting or weakness Treatments prior to arrival: none Review of Systems Const: Denies: fever(s), chills, malaise or diaphoresis ENMT: Denies: throat pain, ear or mastoid pain, nasal discharge or nasal congestion Card: Denies: chest pain, palpitations or syncope Resp: Denies: dyspnea GI: Denies: abdominal pain, nausea or vomiting : Denies: flank pain, difficulty voiding, dysuria, urinary frequency or urinary urgency Musc: Reports: neck pain Skin/Breast: Denies: rash Neuro: Reports: headache(s); Denies: confusion PFSH ED PFSH: Family History Denies family history of Cervical cancer Colon cancer Diabetes Breast cancer Hypertension Uterine cancer Stroke Physical Exam Const: GENERAL APPEARANCE: cooperative and comfortable ORIENTATION/CONSCIOUSNESS: Yes awake, Yes oriented to person, Yes oriented to place and Yes oriented to time HENMT: COMMON NORMALS: normocephalic, atraumatic and hearing grossly normal bilaterally HEAD & SCALP: normocephalic and atraumatic Resp: COMMON NORMALS: normal respiratory effort, No retractions, No use of accessory muscles and clear to auscultation bilaterally AUSCULTATION: clear to auscultation bilaterally Cardio: COMMON NORMALS: regular rate, regular rhythm and No murmurs present (Cardio) RATE: regular rate RHYTHM: regular rhythm GI: COMMON NORMALS: Soft to palpation and No hepatosplenomegaly present AUSCULTATION: Yes normoactive bowel sounds PALPATION: Yes Soft to palpation, No Tenderness to palpation present (GI), No Guarding due to palpation present (GI) and Yes No hepatosplenomegaly present Extremity: COMMON NORMALS: normal to inspection, capillary refill normal, no clubbing, cyanosis or edema, no calf tenderness and no pedal edema Neuro: SENSORIUM/ORIENTATION: Yes oriented to person, Yes oriented to place and Yes oriented to time Skin: COMMON NORMALS: no rashes or lesions noted GENERAL SKIN EXAM: no rashes or lesions noted Course Vital Signs: Vital signs: Vital Signs Temperature 98.3 F 01/24/23 06:04 Pulse Rate 80 01/24/23 09:25 Respiratory Rate 16 01/24/23 09:25 Blood Pressure 110/89 01/24/23 09:25 Pulse Oximetry 98 01/24/23 09:25 Oxygen Delivery Me thod Room Air 01/24/23 09:08 MDM - General Adult Medical Decision Making Patient is post spinal tap headache she has severe headache when upright it is relieved instantly by lying down. We contacted Dr. Garrett she was gracious enough to come to the ER apply a blood patch we will monitor the patient as per her recommendations for period of time afterwards she is doing well. When she was upright her headache is now negligible. Patient be discharged home follow-up with her [employer] TE[employer]ER and with Dr. Garrett as indicated. Medical Records I reviewed the patient's medical records. Lab Data I reviewed the patient's lab results. 01/24/23 06:24 01/24/23 06:24 Laboratory Results WBC 6.3 10^3/uL (4.0-10.0) 01/24/23 06:24 RBC 2.37 10^6/uL (4.1-5.3) L 01/24/23 06:24 Hgb 7.1 g/dL (11.5-15.3) L 01/24/23 06:24 Hct 21.9 % (37.0-47.0) L 01/24/23 06:24 MCV 92.4 fl (81-99) 06/10/23 06:24 MCH 30.0 pg (28.0-34.0) 01/24/23 06:24 MCHC 32.4 g/dL (30.0-36.0) 01/24/23 06:24 RDW 15.9 % (12.1-15.1) H 01/24/23 06:24 Plt Count 231 10^3/cmm (130-400) 01/24/23 06:24 MPV 11.5 fL (7.4-10.4) H 01/24/23 06:24 Neut % (Auto) 60.6 % 01/24/23 06:24 Lymph % (Auto) 26.9 % 01/24/23 06:24 [place]wood % (Auto) 6.3 % 01/24/23 06:24 Eos % (Auto) 5.4 % 01/24/23 06:24 Baso % (Auto) 0.3 % 01/24/23 06:24 Neut # (Auto) 3.82 10^3/uL (1.8-7.7) 01/24/23 06:24 Lymph # (Auto) 1.7 10^3/uL (0.8-4.8) 01/24/23 06:24 [place]wood # (Auto) 0.4 10^3/uL (0.2-0.9) 01/24/23 06:24 Eos # (Auto) 0.3 10^3/uL (0.0-0.8) 01/24/23 06:24 Baso # (Auto) 0.0 10^3/uL (0.0-0.1) 01/24/23 06:24 Nucleated RBC % (auto) 0 % 01/24/23 06:24 Nucleated RBCs # 0.0 /100WBC 01/24/23 06:24 PT 14.00 SECONDS (12.1-14.9) 01/24/23 07:24 INR 1.04 (0.8-1.2) 01/24/23 07:24 APTT 31.6 SECONDS (23.9-36.7) 01/24/23 07:24 Sodium 136 mmol/L (136-145) 01/24/23 06:24 Potassium 4.2 mmol/L (3.5-5.1) 01/24/23 06:24 Chloride 105 mmol/L (98-107) 01/24/23 06:24 Carbon Dioxide 18 mmol/L (22-29) L 01/24/23 06:24 Anion Gap 17.2 (5-19) 01/24/23 06:24 BUN 16 mg/dL (6-20) 01/24/23 06:24 Creatinine 0.5 mg/dL (0.5-0.9) 01/24/23 06:24 GFR Calculation 138.1 mL/min (90-130) H 01/24/23 06:24 Glucose 71 mg/dL (65-115) 01/24/23 06:24 Calculated Osmolality 282 mOsm/kg (285-295) L 01/24/23 06:24 Calcium 8.6 mg/dL (8.5-10.5) 01/24/23 06:24 Total Bilirubin 0.3 mg/dL (0.15-1.2) 01/24/23 06:24 AST 37 U/L (0-32) H 01/24/23 06:24 ALT 28 U/L (0-33) 01/24/23 06:24 Alkaline Phosphatase 108 U/L (35-105) H 01/24/23 06:24 Total Protein 5.6 g/dL (6.6-8.7) L 01/24/23 06:24 Albumin 2.5 g/dL (3.5-5.2) L 01/24/23 06:24 Globulin 3.1 g/dL (1.3-4.6) 01/24/23 06:24 Discharge Plan Discharge Patient Disposition: Home Clinical Impression: spinal headache, Anemia Condition: Stable Prescriptions: No Action Natavi PNV 13.5 mg iron- 0.5 mg-150 mg capsule 1 cap PO 1XD (DME) blood-glucose meter [Blood Glucose Monitoring] Kit See Rx Instructions .Route Qty: 1 0RF Rx Instructions: check blood glucose fasting, 1 hour post breakfast, 1 hour post lunch and 1 hour post dinner. ferrous sulfate 325 mg (65 mg iron) tablet 325 mg PO DAILY Qty: 90 3RF Rx Instructions: take 1 tab daily by mouth. (DME) blood sugar diagnostic Strip See Rx Instructions .Route Qty: 100 3RF Rx Instructions: As directed metformin 500 mg tablet extended release 24 hr 500 mg PO BID Qty: 30 3RF cephalexin 500 mg capsule 500 mg PO BID ibuprofen 800 mg tablet 800 mg PO TID PRN (Reason: pain) Qty: 60 0RF hydrocodone-acetaminophen 5-325 mg tablet 1 tab PO Q4H PRN (Reason: pain) Qty: 20 0RF Iron (ferrous sulfate) 325 mg (65 mg iron) tablet 325 mg PO BID Qty: 60 0RF Colace 100 mg capsule 100 mg PO BID Qty: 60 0RF acetaminophen 325 mg capsule 325 mg PO Q6H Qty: 60 0RF Discharge Orders: Discharge ED (Routine); Ordered 01/24/23 Ordered By: Markie Sparks Referrals: Oleg Awad MD [Primary Care Provider] - Ezequiel Marrero DO [Staff Physician] - Discharge Diet: Usual diet Discharge Activity: Limit activity as instructed Patient Instructions: Epidural Blood Patch (DC), Opioid Safety, Pain Management Coding Level of Care Code ED Front Office Manager for Sandra Bobby
[2023-01-24 06:04] VITALS: BP 143/67; PULSE 73; RESP 18; TEMP 36.8; O2SAT 98; BMI 28.3
[2023-01-24 06:31] VITALS: BP 114/73; O2SAT 99
[2023-01-24] MEDS: promethazine 25 mg/mL SDV 1 mL IM (06:44)
[2023-01-24] MEDS: ketorolac 30 mg/mL INJ IVP (06:47)
[2023-01-24] MEDS: morphine 4 mg/mL SDV 1 mL IVP (06:49)
[2023-01-24 06:51] VITALS: BP 123/76; PULSE 72; RESP 16; O2SAT 99
[2023-01-24 06:56] LABS: Basophils % 0.3 %; Eosinophils # 0.3 10^3/uL (0.0-0.8); Eosinophils % 5.4 %; Hematocrit 21.9 % (37.0-47.0); Hemoglobin 7.1 g/dL (11.5-15.3); Lymphocytes # 1.7 10^3/uL (0.8-4.8); Lymphocytes % 26.9 %; Mean Corpuscular HGB Conc 32.4 g/dL (30.0-36.0); Mean Corpuscular Volume 92.4 fl (81-99); Mean Platelet Volume 11.5 fL (7.4-10.4); Monocytes # 0.4 10^3/uL (0.2-0.9); Monocytes % 6.3 %; Neutrophils # 3.82 10^3/uL (1.8-7.7); Neutrophils % 60.6 %; Nucleated Red Blood Cells % 0 %; Platelet Count 231 10^3/cmm (130-400); Red Blood Count 2.37 10^6/uL (4.1-5.3); Red Cell Distribution Width 15.9 % (12.1-15.1); White Blood Count 6.3 10^3/uL (4.0-10.0)
[2023-01-24 07:03] LABS: Chloride 105 mmol/L (98-107); Potassium 4.2 mmol/L (3.5-5.1); Sodium 136 mmol/L (136-145)
[2023-01-24 07:23] LABS: Alanine Aminotransferase 28 U/L (0-33); Albumin Level 2.5 g/dL (3.5-5.2); Alkaline Phosphatase 108 U/L (35-105); Anion Gap 17.2 (5-19); Blood Urea Nitrogen 16 mg/dL (6-20); Calcium 8.6 mg/dL (8.5-10.5); Carbon Dioxide 18 mmol/L (22-29); Creatinine Clr Calc Pharmacy 145.6319; Globulin 3.1 g/dL (1.3-4.6); Glomerular Filtration Rate 138.1 mL/min (90-130); Glucose 71 mg/dL (65-115); Osmolality Calculated 282 mOsm/kg (285-295); Total Bilirubin 0.3 mg/dL (0.15-1.2); Total Protein 5.6 g/dL (6.6-8.7)
--- NOTE | 2023-01-24 07:30 | PC.NURSE ---
Dr Khan from anesthesia in room with OB nurses doing blood patch at this time.
[2023-01-24 07:31] LABS: Aspartate Amino Transferase 37 U/L (0-32)
--- NOTE | 2023-01-24 08:02 | ANES.PAUD2 ---
Pre-Anesthetic Update Pre-Anesthetic Assessment: Date of Surgery/Procedure: 01/24/23 Proposed Procedure: Epidural blood patch Any changes to Pre-Anesthetic Assessment?: No Labs Last 48hrs: Short CBC 01/24/23 Range/Units 06:24 WBC 6.3 (4.0-10.0) 10^3/ uL Hgb 7.1 L (11.5-15.3) g/dL Hct 21.9 L (37.0-47.0) % MCV 92.4 (81-99) fl Plt Count 231 (130-400) 10^3/c mm Neut % (Auto) 60.6 % Neut # (Auto) 3.82 (1.8-7.7) 10^3/u L BMP 01/24/23 06:24 Sodium 136 Potassium 4.2 Chloride 105 Carbon Dioxide 18 L BUN 16 Creatinine 0.5 Glucose 71 Calcium 8.6 Liver Function 01/24/23 Range/Units 06:24 Total Bilirubin 0.3 (0.15-1.2) mg/dL AST 37 H (0-32) U/L ALT 28 (0-33) U/L Alkaline Phosphata se 108 H (35-105) U/L Albumin 2.5 L (3.5-5.2) g/dL Vitals: Temperature 98.3 F 01/24/23 06:04 Temperature Source Oral 01/24/23 06:04 Pulse Rate 72 01/24/23 06:51 Pulse Rhythm Regular 01/24/23 06:04 Respiratory Rate 16 01/24/23 06:51 Respiratory Effort Spontaneous, Non- Labored 01/24/23 06:51 Respiratory Depth Normal 01/24/23 06:51 Respiratory Patter n Normal 01/24/23 06:51 Blood Pressure 123/76 01/24/23 06:51 Blood Pressure Regina n 91 01/24/23 06:51 Blood Pressure Pos ition Supine 01/24/23 06:51 Pulse Oximetry 99 01/24/23 06:51 Oxygen Delivery Me thod Room Air 01/24/23 06:51 Sepsis Recent Feve r Within 48 Hours No 01/24/23 06:51 Exam: Pre-Anes Outpt Exam: alert, oriented x 3, clear to auscultation bilaterally and regular rate & rhythm Other Pertinent Information: Other Pertinent Information: patient with symptoms classic for postdural puncture headache Cardiac Studies: No Data to Display
--- NOTE | 2023-01-24 08:03 | ANES.PROC ---
Anesthesia Procedures Procedure/Date: 01/24/23 Other Information: PETTY achieved with saline by me at L3-4, 20 cc of blood drawn sterilely from L arm by Hammad Morrison Patient reported improvement in headache and pressure in back. Patient instructed to lay flat for approximately one hour and then can be discharged home without further restrictions. Return to ER if excessive bleeding, pain, erythema, purulence or swelling occurs at blood patch site and if develops loss of bowel or bladder control, leg weakness and numbness.
[2023-01-24 08:04] LABS: INR 1.04 (0.8-1.2)
[2023-01-24 08:05] LABS: Partial Thromboplastin Time 31.6 SECONDS (23.9-36.7)
[2023-01-24 09:08] VITALS: BP 110/89; PULSE 80; RESP 16; O2SAT 98
--- NOTE | 2023-01-24 09:21 | PC.NURSE ---
AT 0900 - Pt was one hr post blood patch and was sat up to about 30 degrees. Pt tolerated well. At 0915 - pt was sat up to 45 degrees and stated that she was ready to go home. IV removed.
[2023-01-24 09:25] VITALS: BP 110/89; PULSE 80; RESP 16; O2SAT 98
== END 2023-01-24 09:28 | disposition home or self-care (01) ==
PROVIDERS: Emergency Provider Family Medicine; PCP Obstetrics & Gynecology
DX: O89.4 Spinal and epidural anesthesia-induced headache during the puerperium (principal)
CPT/HCPCS: 36415; 80053; 85025; 85610; 85730; 96372; 96374; 96375; 99284; J1885; J2270; J2550